=== PATIENT | female | born 1935 | race Caucasian/White ===

== ENCOUNTER 2017-10-25 10:00 | Outpatient (CLI) | payer MEDICARE | END 2017-10-25 10:01 | disposition home or self-care (01) | LOC: BICMAMMO 10:00 | PROVIDERS: ATTEND Internal Medicine | DX: Z12.31 Encounter for screening mammogram for malignant neoplasm of breast (principal); Z80.3 Family history of malignant neoplasm of breast; Z85.3 Personal history of malignant neoplasm of breast | CPT/HCPCS: 77063; 77067 ==

== ENCOUNTER 2017-11-03 12:37 | Observation (INO) | payer MEDICARE ==
[2017-11-03] MEDS ORDERED: Meclizine HCl 25 MG TAB ONE (13:13)
[2017-11-03] MEDS ORDERED: Promethazine HCl 25 MG/ML VIAL ONE (13:13)
[2017-11-03 13:23] LABS: #Lymphocytes 1.5 thou/uL (1.20-3.40); #Monocytes 0.3 thou/uL (0.11-0.59); #Neutrophils 7.9 thou/uL (1.40-6.50); %Basophils 0.2 % (0.0-1.0); %Eosinophils 0.2 % (0.0-10.0); %Lymphocytes 15.5 % (21.0-51.0); %Neutrophils 81.1 % (42.0-75.0); Hemoglobin 14.2 g/dL (12.0-16.0); Mean Corpuscular HGB CONC 33.3 g/dL (32.0-36.0); Mean Corpuscular Hemoglobin 30.3 pg (27.0-31.0); Mean Corpuscular Volume 90.9 fl (81.0-99.0); Mean Platelet Volume 6.9 fL (7.4-10.4); Platelet Count 220 thou/uL (130-400); RBC Distribution Width 11.9 % (11.5-14.5); White Blood Cell (WBC) Count 9.8 thou/uL (4.8-10.8)
[2017-11-03 13:41] LABS: ALT (SGPT) 13 U/L (8-55); AST (SGOT) 22 U/L (5-34); Albumin 4.5 g/dL (3.4-4.8); Alkaline Phosphatase 64 U/L (40-150); Anion Gap 17 mmol/L (10-20); BUN (Urea Nitrogen) 12 mg/dL (9.8-20.1); Bilirubin, Total 0.5 mg/dL (0.2-1.2); CK (CPK) 48 U/L (29-168); CKMB 1.1 ng/mL (0-6.6); Calc. Creatinine Clearance 0 mL/min (70-130); Calcium 9.4 mg/dL (7.8-10.44); Carbon Dioxide 23 mmol/L (23-31); Chloride 99 mmol/L (98-107); Estimated GFR-MDRD Greater than 90; Globulin 3.1 g/dL (2.4-3.5); Glucose 148 mg/dL (83-110); Lipase 19 U/L (8-78); Potassium 3.9 mmol/L (3.5-5.1); Protein, Total 7.6 g/dL (6.0-8.3); Sodium 135 mmol/L (136-145); Troponin I Less than 0.010 ng/mL (< 0.028)
--- NOTE | 2017-11-03 14:20 | CT ---
CT BRAIN NONCONTRAST: HISTORY: 82-year-old female with syncope and dizziness. FINDINGS: There is no midline shift or any other mass effect. There is no evidence of acute intracranial hemor rhage, large cortical infarct, obstructive hydrocephalus, or extraaxial fluid collection. The calvar ium is intact. IMPRESSION: No acute intracranial findings. aliya [] POS: [facility]
--- NOTE | 2017-11-03 14:22 | RAD ---
RADIOGRAPH CHEST 1 VIEW: Date: 11/03/17 Time: 1349 HOURS HISTORY: 82-year-old female status post syncope and hypertension. COMPARISON: 10/08/06. FINDINGS: The current study is supine, which would be insensitive for pneumothorax detection. The previously de monstrated elevation of left hemidiaphragm is more pronounced now, due to more hypoinflation of the l ungs. The visualized lung granados are clear, but the posterior lung bases, especially the left lower l obe, are obscured. Progression of atherosclerosis, ectasia, and tortuosity of the thoracic aorta. Muc h of the cardiac shadows is obscured by the elevated left hemidiaphragm. No pulmonary edema. IMPRESSION: 1. Chronically elevated left hemidiaphragm. 2. Atherosclerosis, ectasia, and tortuosity of the thoracic aorta. 3. No acute pulmonary findings. MARITA [] POS: VIK[facility]
[2017-11-03 14:54] LABS: Bilirubin Small (Negative); Blood, Urine Negative (Negative); Clarity CLEAR (Clear); Glucose, Urine (Dipstick) Negative (Negative); Leukocyte Negative (Negative); Nitrite Negative (Negative); Protein, Urine (Dipstick) Negative (Neg-Trace); Urobilinogen 0.2 mg/dL (0.2-1.0); pH, Urine 7.5 (5.0-9.0)
[2017-11-03] MEDS ORDERED: Diabetic Tussin 200 MG/10 ML UDCUP PO PRN (15:44)
[2017-11-03] MEDS ORDERED: Ondansetron ODT 4 MG TAB PO PRN (15:44)
[2017-11-03] MEDS ORDERED: Mag-Al 1200 mg/1200 mg/30 ML UDCUP PO PRN (15:44)
[2017-11-03] MEDS ORDERED: Sodium Chloride 0.65% Nasal 44 ML BOT EA NARE PRN (15:44)
[2017-11-03] MEDS ORDERED: Ondansetron HCl/PF 4 MG/2 ML Vial IVP PRN (15:44)
[2017-11-03] MEDS ORDERED: Zolpidem Tartrate 5 MG TAB PO PRN (15:44)
[2017-11-03] MEDS ORDERED: Loperamide HCl 2 MG CAP PO PRN (15:44)
[2017-11-03] MEDS ORDERED: hydrALAZINE 20 MG/ML VIAL SLOW IVP PRN (15:44)
[2017-11-03] MEDS ORDERED: Eucerin (Mineral Oil/Petrolatum,White) 30 gm Jar TOP PRN (15:44)
[2017-11-03] MEDS ORDERED: Chloraseptic Spray 180 ml Bottle PO PRN (15:44)
[2017-11-03] MEDS ORDERED: Acetaminophen 325 MG TAB PO PRN (15:44)
[2017-11-03] MEDS ORDERED: Loratadine 10 MG TAB PO PRN (15:44)
[2017-11-03] MEDS ORDERED: Senokot 8.6 MG TAB PO PRN (15:44)
[2017-11-03] MEDS ORDERED: Artificial Tears 18 DROP/0.9 ML EA EYE PRN (15:44)
[2017-11-03] MEDS ORDERED: Etodolac 200 MG CAP PO PRN (15:44)
[2017-11-03] MEDS ORDERED: Nitroglycerin 0.4 MG TAB (25 Tab Bottle) SL PRN (15:44)
[2017-11-03] MEDS ORDERED: Milk Of Magnesia 30 ML UDCUP PO PRN (15:44)
[2017-11-03] MEDS ORDERED: HYDROcodone/Acetaminophen 5/325 mg Tablet PO PRN (15:44)
--- NOTE | 2017-11-03 16:03 | HP ---
PRIMARY CARE PHYSICIAN: Jennifer Ryder M.D. REASON FOR ADMISSION: Vertigo and syncope. HISTORY OF PRESENT ILLNESS: An 82-year-old female, who has history of hypertension, who was experien cing sudden onset of dizziness, inability to maintain balance, unsteadiness along with nausea and vom iting. She denies any associated diplopia. She denies any focal motor or sensory symptoms. The pat iesherice had a couple of times vomiting and she also fainted for few seconds. The patient was not able to walk because of unsteadiness. The patient's blood pressure was very high at home. The patient's family member gave her 2 different kinds of blood pressure medicines, still blood pressure was running high and that is why family member concerned about and decided to bring he r to the emergency room. In the emergency room when the patient was trying to stand or walk, she was not able to maintain her balance and she was feeling dizziness. The patient also had episode of this near syncopal episode in the emergency room as well. The patient was hypertensive in the emergency room. CT brain was negat richy. Routine blood test was unremarkable. The patient denies any associated chest pain, palpitation , or headache. She denies any UTI symptoms. She denies any constipation, but she had diarrhea last night. Currently, she denies any diarrhea. She denies any abdominal pain. She denies any fever or flu-like illness. Her p.o. intake is normal. She denies any diplopia. She denies any facial asymme try or slurred speech. She never had this type of problem before. ALLERGIES: CODEINE SULFATE. CURRENT HOME MEDICATIONS: Aspirin 325 mg p.o. daily, Coreg 6.25 mg p.o. b.i.d., Coenzyme Q10 of 200 mg p.o. daily, etodolac 400 mg twice daily, lisinopril 5 mg at bedtime, lorazepam 1 mg p.o. at bedtim e, omeprazole 20 mg p.o. daily, and Livalo 4 mg p.o. daily. REVIEW OF SYSTEMS: The following complete review of systems was negative, unless otherwise mentioned in the HPI or below: Constitutional: Weight loss or gain, ability to conduct usual activities. Skin: Rash, itching. Eyes: Double vision, pain. ENT/Mouth: Nose bleeding, neck stiffness, pain, tenderness. Cardiovascular: Palpitations, dyspnea on exertion, orthopnea. Respiratory: Shortness of breath, wheezing, cough, hemoptysis, fever or night sweats. Gastrointestinal: Poor appetite, abdominal pain, heartburn, nausea, vomiting, constipation, or diarr hea. Genitourinary: Urgency, frequency, dysuria, nocturia. Musculoskeletal: Pain, swelling. Neurologic/Psychiatric: Anxiety, depression. Allergy/Immunologic: Skin rash, bleeding tendency. Please see my HPI for pertinent positive and negative. All other review of systems reviewed and nega tive except as mentioned in the HPI. PAST MEDICAL HISTORY: History of breast cancer, history of recurrent UTI, hypertension, LBBB, dyslip idemia, and gastroesophageal reflux disease. PAST SURGICAL HISTORY: Back surgery with a screw, hysterectomy, mastectomy of the right breast. PAST PSYCHIATRIC HISTORY: Reviewed and negative. SOCIAL HISTORY: The patient is and lives at home with family. No history of tobacco, alcoho l or illicit drug abuse. FAMILY HISTORY: No strong family history of premature coronary artery disease, stroke or cancer. EMERGENCY ROOM COURSE: The patient is given aspirin 324 mg, meclizine 25 mg, Phenergan 25 mg, and IV fluid. PHYSICAL EXAMINATION: VITAL SIGNS: On arrival, blood pressure 152/72, pulse 76, respiratory rate 16, temperature 97.2, sat uration 93% on room air, weight 50.8 kilograms. GENERAL: The patient is currently alert, awake, no obvious acute distress. HEENT: Head: Normocephalic, atraumatic. Eyes: Pupils round, reactive to light. Extraocular muscl es are intact. Nystagmus, horizontal present. ENT: Oropharynx within normal limits. Moist mucous membranes. No oral lesion. No pharyngeal erythema, no exudate. NECK: Supple, no JVD, no thyromegaly, no carotid bruit, no meningeal signs of irritation. LUNGS: Clear to auscultation without any rhonchi or rales. CARDIAC: S1, S2 regular. No murmur, no gallop, no rub. ABDOMEN: Soft, bowel sounds present, nontender, nondistended. No organomegaly, no mass, no suprapub ic tenderness. BACK: Unremarkable, no CVA tenderness. EXTREMITIES: Upper extremity: Passive movements of all joints are normal. Lower extremity: No lupe ma. Good peripheral pulsation. SKIN: No skin rash. HEMATOLOGIC: No lymphadenopathy. PSYCHIATRIC: Normal affect. NEUROLOGIC: The patient is alert and oriented x3. Cranial nerves II-XII intact. Motor is 5/5 in al l four limbs. Sensation bilaterally symmetrical. Reflexes bilaterally symmetrical. No cerebellar s ign noted. Horizontal nystagmus noted. Plantar bilateral flexor. Gait is unable to assess. IMAGING: EKG showing incomplete left bundle branch block pattern, left ventricular hypertrophy. CT brain based on my review, no acute intracranial process. Chest x-ray based on my review, chronically elevated left hemidiaphragm. SIGNIFICANT LABS: CBC: WBC 9.8, hemoglobin 14.2, platelet 220. BMP: Sodium 135, potassium 3.9, chloride 99, carbon dioxide 23, anion gap 17, BUN 12, creatinine 0.6 1, glucose 148, calcium 9.4. LFT: AST 22, ALT 13, alkaline phosphatase 64, albumin 4.5, lipase 19. CK 48, CK-MB 1.1, troponin I less than 0.010, BNP 131.8. ASSESSMENT AND PLAN: 1. Dizziness/vertigo and syncope. The patient has horizontal nystagmus. The patient has positional vertigo. I am suspecting benign positional vertigo, vestibular labyrinthitis less likely given no r espiratory or viral symptoms. I am not suspecting cerebellar stroke, but cannot be entirely excluded . CT brain is negative. She does not have any cerebellar signs. She will need further evaluation w ith MRI brain, echocardiography and carotid Doppler while in hospital. We will treat her with Antive rt 25 mg p.o. t.i.d. and will rule out cardiac etiology with serial cardiac enzymes. We will monitor on telemetry floor and subsequently if patient is doing well, then we will consider discharging her home tomorrow. We will also consult Physical Therapy evaluation tomorrow. 2. Hypertension. We will rule out orthostatic hypotension and will continue Coreg 6.25 mg p.o. b.i. d., as well as lisinopril 5 mg p.o. at bedtime. 3. Gastroesophageal reflux disease. We will continue Pepcid 20 mg p.o. b.i.d. 4. Dyslipidemia. We will check lipid profile tomorrow and continue Livalo 4 mg p.o. at bedtime. 5. History of breast cancer, treated with mastectomy. 6. Chronic left bundle branch block pattern. 7. Left ventricular hypertrophy with heart disease. The patient has elevated BNP and that is why we will do echocardiography as well. 8. Deep venous thrombosis prophylaxis not needed because we are expecting discharge in 24 hours. 9. Gastrointestinal prophylaxis, Pepcid 20 mg p.o. b.i.d. 10. Code status: The patient is FULL CODE. The patient's is surrogate decision maker. Disposition plan was based on clinical course. We are expecting patient's stay in hospital 24-48 sage rs. Plan of care discussed with the family member at bedside in the emergency room.
[2017-11-03 17:00] LABS: Troponin I Less than 0.010 ng/mL (< 0.028)
[2017-11-03 17:29] VITALS: BMI 20.3
[2017-11-03] MEDS: Carvedilol 6.25 MG TAB PO SCH (18:17)
--- NOTE | 2017-11-03 19:17 | ULT ---
BILATERAL CAROTID DUPLEX ULTRASOUND WITH SPECTRAL ANALYSIS AND COLOR FLOW EVALUATION. 11/03/17 HISTORY: Syncope and dizziness. FINDINGS: [place] scale, color flow, doppler evaluation, and spectral analysis of the bilateral carotid arteries i s performed with 2D imaging. There is a calcified atherosclerotic plaque seen in the distal left comm on carotid artery and involving the proximal left internal carotid artery. There is less than 50% maximal stenosis in the bilateral internal carotid arteries according to the p eak systolic velocities and the ICA/CCA ratios. The peak systolic velocity in the right ICA is 53.3 cm/s with an ICA/CCA ratio of 0.47. The peak systolic velocity in the left ICA is 45.5 cm/s with an ICA/CCA ratio of 1.19. Antegrade flow is demonstrated in the vertebral arteries bilaterally. IMPRESSION: No hemodynamically significant stenosis in the bilateral internal carotid arteries. POS: [facility]
[2017-11-03 19:50] LABS: Troponin I Less than 0.010 ng/mL (< 0.028)
[2017-11-03] MEDS: Famotidine 20 MG TAB PO SCH (20:15)
[2017-11-03] MEDS ORDERED: Lorazepam 1 MG TAB PO SCH (21:00)
[2017-11-03] MEDS ORDERED: Lisinopril 5 MG TAB PO SCH (21:00)
[2017-11-03] MEDS ORDERED: Atorvastatin Calcium 20 MG TAB PO SCH (21:00)
[2017-11-03] MEDS: Meclizine HCl 25 MG TAB PO SCH (21:13)
[2017-11-04 04:51] LABS: #Eosinphils 0.1 thou/uL (0.0-0.7); #Lymphocytes 2.2 thou/uL (1.20-3.40); #Monocytes 0.7 thou/uL (0.11-0.59); #Neutrophils 4.3 thou/uL (1.40-6.50); %Basophils 0.1 % (0.0-1.0); %Eosinophils 1.1 % (0.0-10.0); %Lymphocytes 29.9 % (21.0-51.0); %Monocytes 9.8 % (0.0-10.0); %Neutrophils 59.2 % (42.0-75.0); Hemoglobin 13.3 g/dL (12.0-16.0); Mean Corpuscular HGB CONC 33.6 g/dL (32.0-36.0); Mean Corpuscular Hemoglobin 30.5 pg (27.0-31.0); Mean Corpuscular Volume 90.7 fl (81.0-99.0); Mean Platelet Volume 6.9 fL (7.4-10.4); Platelet Count 220 thou/uL (130-400); Red Blood Cell (RBC) Count 4.36 mill/uL (4.20-5.40); White Blood Cell (WBC) Count 7.2 thou/uL (4.8-10.8)
[2017-11-04 05:04] LABS: Anion Gap 10 mmol/L (10-20); BUN (Urea Nitrogen) 11 mg/dL (9.8-20.1); Calc. Creatinine Clearance 61 mL/min (70-130); Calcium 9.7 mg/dL (7.8-10.44); Carbon Dioxide 28 mmol/L (23-31); Cardiac Risk 3.4 (Less than 4.5); Chloride 105 mmol/L (98-107); Cholesterol 178 mg/dl (< 200 Desired); Estimated GFR-MDRD Greater than 90; Glucose 99 mg/dL (83-110); HDL Cholesterol 52 mg/dL (>60 Neg Risk); LDL Cholesterol, Calculated 93 mg/dL; Potassium 3.3 mmol/L (3.5-5.1); Sodium 140 mmol/L (136-145); Triglycerides 164 mg/dL (Less than 150)
[2017-11-04] MEDS: Meclizine HCl 25 MG TAB PO SCH (05:27)
[2017-11-04] MEDS ORDERED: Potassium Chloride 20 MEQ TAB PO SCH (06:45)
[2017-11-04] MEDS: Famotidine 20 MG TAB PO SCH (08:41)
[2017-11-04] MEDS: Carvedilol 6.25 MG TAB PO SCH (08:41)
[2017-11-04] MEDS ORDERED: Ubidecarenone 50 MG CAP PO SCH (09:00)
[2017-11-04] MEDS ORDERED: Aspirin 325 MG TAB PO SCH (09:00)
--- NOTE | 2017-11-04 09:50 | PDOC.PN ---
- Subjective Encounter Start Date: 11/04/17 Encounter Start Time: 08:40 -: old records requested/rev Patient seen and examined. No new complaints. No overnight events - Objective Resuscitation Status: Resuscitation Status FULL:Full Resuscitation MAR Reviewed: Yes Vital Signs & Weight: Vital Signs (12 hours) Temp Pulse Resp BP BP BP BP 11/04/17 08:55 83 164/78 H 11/04/17 08:54 80 154/74 H 150/70 H 11/04/17 07:59 98.0 F 78 16 11/04/17 07:41 98.0 F 78 16 173/78 H 11/04/17 04:21 97.8 F 86 22 H 141/73 H Pulse Ox 11/04/17 08:55 11/04/17 08:54 11/04/17 07:59 11/04/17 07:41 93 L 11/04/17 04:21 93 L Weight Weight 111 lb 3.2 oz I&O: 11/03/17 11/04/17 11/05/17 06:59 06:59 06:59 Intake Total 600 Output Total 1000 800 Balance -400 -800 Result Diagrams: 11/04/17 04:24 11/04/17 04:24 Radiology Reviewed by me: Yes (carotid) EKG Reviewed by me: Yes (nsr) Phys Exam - Physical Examination Constitutional: NAD HEENT: PERRLA, moist MMs, sclera anicteric Neck: no JVD, supple Respiratory: no wheezing, no rales, no rhonchi Cardiovascular: RRR, no significant murmur, no rub Gastrointestinal: soft, non-tender, no distention, positive bowel sounds Musculoskeletal: no edema, pulses present Neurological: non-focal, normal sensation, moves all 4 limbs Lymphatic: no nodes Psychiatric: normal affect, A&O x 3 Skin: no rash, normal turgor Dx/Plan (1) Vertigo Code(s): R42 - DIZZINESS AND GIDDINESS Status: Acute Comment: likely due to BPPV (2) Elevated brain natriuretic peptide (BNP) level Code(s): R79.89 - OTHER SPECIFIED ABNORMAL FINDINGS OF BLOOD CHEMISTRY Status : Acute (3) Hypokalemia Code(s): E87.6 - HYPOKALEMIA Status: Acute (4) Anxiety and depression Code(s): F41.9 - ANXIETY DISORDER, UNSPECIFIED; F32.9 - MAJOR DEPRESSIVE DISORDER, SINGLE EPISODE, UNSPECIFIED Status: Chronic (5) Dyslipidemia Code(s): E78.5 - HYPERLIPIDEMIA, UNSPECIFIED Status: Chronic (6) GERD (gastroesophageal reflux disease) Code(s): K21.9 - GASTRO-ESOPHAGEAL REFLUX DISEASE WITHOUT ESOPHAGITIS Status: Chronic (7) H/O malignant neoplasm of breast Code(s): Z85.3 - PERSONAL HISTORY OF MALIGNANT NEOPLASM OF BREAST Status: Chronic (8) Hypertension Code(s): I10 - ESSENTIAL (PRIMARY) HYPERTENSION Status: Chronic (9) LBBB (left bundle branch block) Code(s): I44.7 - LEFT BUNDLE-BRANCH BLOCK, UNSPECIFIED Status: Chronic (10) LVH (left ventricular hypertrophy) due to hypertensive disease Code(s): I11.9 - HYPERTENSIVE HEART DISEASE WITHOUT HEART FAILURE Status: Chronic - Plan cont current plan of care, plan discussed w/ family, PT/OT * after MRI, echo will consider discharge * medication reviewed as below * symptomatic treatment. Review of Systems - Review of Systems Eyes: negative: Pain, Vision Change, Conjunctivae Inflammation, Eyelid Inflammation, Redness, Other ENT: negative: Ear Pain, Ear Discharge, Nose Pain, Nose Discharge, Nose Congestion, Mouth Pain, Mouth Swelling, Throat Pain, Throat Swelling, Other Respiratory: negative: Cough, Dry, Shortness of Breath, Hemoptysis, SOB with Excertion, Pleuritic Pain, Sputum, Wheezing Cardiovascular: negative: chest pain, palpitations, orthopnea, paroxysmal nocturnal dyspnea, edema, light headedness, other Gastrointestinal: negative: Nausea, Vomiting, Abdominal Pain, Diarrhea, Constipation, Melena, Hematochezia, Other Genitourinary: negative: Dysuria, Frequency, Incontinence, Hematuria, Retention , Other Musculoskeletal: negative: Neck Pain, Shoulder Pain, Arm Pain, Back Pain, Hand Pain, Leg Pain, Foot Pain, Other Skin: negative: Rash, Lesions, Farzad, Bruising, Other - Medications/Allergies Allergies/Adverse Reactions: Allergies Allergy/AdvReac Type Severity Reaction Status Date / Time codeine Allergy Verified 11/03/17 17:44 Medications: Current Medications Acetaminophen (Tylenol) 650 mg PO Q4H PRN PRN Reason: Headache/Fever or Pain Last Admin: 11/03/17 18:17 Dose: 650 mg Hydrocodone Bitart/Acetaminophen ([place] 5/325) 1 tab PO Q4H PRN PRN Reason: Moderate Pain (4-6) Al Hydroxide/Mg Hydroxide (Maalox) 30 ml PO Q6H PRN PRN Reason: Heartburn or Indigestion Artificial Tears (Tears Naturale) 0 drop EA EYE PRN PRN PRN Reason: Dry Eyes Aspirin (Aspirin) 325 mg PO DAILY [facility] Last Admin: 11/04/17 08:41 Dose: 325 mg Atorvastatin Calcium (Lipitor) 20 mg PO [facility] Last Admin: 11/03/17 20:15 Dose: 20 mg Carvedilol (Coreg) 6.25 mg PO BID[facility] Last Admin: 11/04/17 08:41 Dose: 6.25 mg Coenzyme Q10 (Coenzyme Q10) 200 mg PO DAILY [facility] Last Admin: 11/04/17 08:42 Dose: 200 mg Etodolac (Lodine) 400 mg PO Q12H PRN PRN Reason: Pain Famotidine (Pepcid) 20 mg PO BID [facility] Last Admin: 11/04/17 08:41 Dose: 20 mg Guaifenesin (Robitussin Sf) 200 mg PO Q4H PRN PRN Reason: Cough Hydralazine HCl (Apresoline) 10 mg SLOW IVP Q4H PRN PRN Reason: Systolic BP > 180 Lisinopril (Zestril) 5 mg PO [facility] Last Admin: 11/03/17 20:15 Dose: 5 mg Loperamide HCl (Imodium) 2 mg PO PRN PRN PRN Reason: Diarrhea/Loose Stools Loratadine (Claritin) 10 mg PO DAILYPRN PRN PRN Reason: Sinus Symptoms Lorazepam (Ativan) 1 mg PO [facility] Last Admin: 11/03/17 20:15 Dose: 1 mg Magnesium Hydroxide (Milk Of Magnesium) 30 ml PO DAILYPRN PRN PRN Reason: Constipation Meclizine HCl (Antivert) 25 mg PO Q8HR [facility] Last Admin: 11/04/17 05:27 Dose: 25 mg Mineral Oil/White Petrolatum (Eucerin Cream) 0 gm TOP BIDPRN PRN PRN Reason: Dry Skin Nitroglycerin (Nitrostat) 0.4 mg SL Q5MIN PRN PRN Reason: Chest Pain Ondansetron HCl (Zofran Odt) 4 mg PO Q6H PRN PRN Reason: Nausea/Vomiting Ondansetron HCl (Zofran) 4 mg IVP Q6H PRN PRN Reason: Nausea/Vomiting Phenol (Chloraseptic [place] 180 Ml Bot) 0 ml PO PRN PRN PRN Reason: Sore Throat Senna (Senokot) 2 tab PO HSPRN PRN PRN Reason: Constipation Sodium Chloride ([place] Nasal [place] 0.65%) 0 ml EA NARE QIDPRN PRN PRN Reason: Nasal Congestion Zolpidem Tartrate (Ambien) 5 mg PO HSPRN PRN PRN Reason: Insomnia
--- NOTE | 2017-11-04 11:11 | DIS ---
DATE OF ADMISSION: 11/03/2017 DATE OF DISCHARGE: 11/04/2017 PRIMARY CARE PHYSICIAN: Dr. Jennifer Ryder. DISCHARGE DISPOSITION: Home. PRIMARY DISCHARGE DIAGNOSES: 1. Vertigo. 2. Syncope. SECONDARY DISCHARGE DIAGNOSES: Hypertension with hypertensive heart disease, left ventricular hypert rophy, chronic left bundle branch block pattern, anxiety and depression, dyslipidemia, gastroesophage al reflux disease, history of breast cancer. PRIMARY PROCEDURE AND OPERATION: None. RADIOLOGICAL INVESTIGATION: CT brain normal. Chest x-ray normal. Carotid Doppler normal. Echocard iography will be done before discharge. MRI, we will try to do if possible (patient reports screws i n her back). SIGNIFICANT LABORATORY DATA: Hemoglobin 13.3. CBC normal. Potassium 3.3 and after that replaced. Other electrolytes normal. Cardiac enzymes negative. BNP 131, LDL 93, homocysteine 3.25. Urinalysi s normal. DISCHARGE MEDICATIONS: New medication, Antivert 25 mg t.i.d. p.r.n., aspirin 325 mg p.o. daily, Core g 6.25 mg p.o. b.i.d., vitamin D3 1000 unit p.o. daily, etodolac 400 mg p.o. b.i.d., lisinopril 5 mg p.o. at bedtime, lorazepam 0.5 mg p.o. at bedtime, omeprazole 20 mg p.o. daily, Livalo 4 mg p.o. cami y, coenzyme Q10 200 mg p.o. daily, vitamin B complex 1 capsule p.o. daily. CONTRAINDICATIONS: None. CODE STATUS: FULL CODE. INPATIENT CONSULTANTS: None. ALLERGIES: CODEINE. DISCHARGE PLAN: Post hospital, the patient will follow up with primary care physician as instructed. HOSPITAL COURSE: An 82-year-old female who was feeling acute onset of vertigo. She was feeling a sp inning sensation and she had episode of vomiting and subsequently she passed out for a few seconds. The patient was brought to emergency room, she was hypertensive. She was not able to maintain her ba annita. She had horizontal nystagmus. She did not have any cerebellar sign on physical examination. Her CT brain was normal. Her chest x-ray was normal. Routine blood test was unremarkable. We susp ected benign positional vertigo. For benefit of doubt, we are trying to do MRI brain if possible and we also did an echocardiography, official report will be pending by the time of dictation. A caroti d Doppler is normal. We treated her with Antivert and patient next day completely unremarkable. Her dizziness and vertigo completely resolved and patient is ready to go home. Her nausea and vomiting also subsided. The patient is seen and examined at bedside today. Please see my progress note from today. After ab ove-mentioned investigation done, this patient is medically stable for discharge.
[2017-11-04 11:52] VITALS: BP 154/74; TEMP 97.9
--- NOTE | 2017-11-04 13:13 | MRI ---
BRAIN MRI NONCONTRAST: Date: 11/04/17 INDICATION: Syncope with dizziness. Reference made to head CT from previous day. FINDINGS: There is no acute territorial infarction, intracranial mass effect, midline shift, or ventriculomegal y. [place] intraocular lens is absent. No obvious abnormality at the imaged skull base flow-voids. The re is mid chronic microvascular ischemic disease involving the cerebral white matter. IMPRESSION: No acute intracranial abnormalities. POS: [facility]
--- NOTE | 2017-12-14 14:01 | EKG ---
Test Reason : Blood Pressure : / mmHG Vent. Rate : 074 BPM Atrial Rate : 074 BPM P-R Int : 178 ms QRS Dur : 156 ms QT Int : 454 ms P-R-T Axes : 044 -05 108 degrees QTc Int : 503 ms Normal sinus rhythm Left ventricular hypertrophy with QRS widening and repolarization abnormality Left bundle branch block , old Abnormal ECG Confirmed by FAUZIA RAMÍREZ, GEO ([id number]), photography editor SOFIE MORAES ([id number]) on 12/14/2017 2:01:24 PM Referred By: Confirmed By:GEO CAGE MD
== END 2017-11-04 13:49 | disposition home or self-care (01) ==
LOC: ERS 12:37 → 2SW 14:29
PROVIDERS: ADMIT Internal Medicine; ATTEND Internal Medicine
DX: H81.10 Benign paroxysmal vertigo, unspecified ear (principal); R55 Syncope and collapse; I11.9 Hypertensive heart disease without heart failure; I44.7 Left bundle-branch block, unspecified; E78.5 Hyperlipidemia, unspecified; K21.9 Gastro-esophageal reflux disease without esophagitis; F41.9 Anxiety disorder, unspecified; F32.9 Major depressive disorder, single episode, unspecified; R79.89 Other specified abnormal findings of blood chemistry; E87.6 Hypokalemia; Z85.3 Personal history of malignant neoplasm of breast; Z79.82 Long term (current) use of aspirin; Z79.899 Other long term (current) drug therapy; Z88.5 Allergy status to narcotic agent
CPT/HCPCS: 70450; 70551; 71045; 80048; 80053; 80061; 81003; 82550; 82553; 83090; 83690; 83880; 84484 ×2; 85025 ×2; 93005; 93306; 93880; 94760; 96365; 97139; 99285; G0378; 36415; J2550

== ENCOUNTER 2018-10-28 09:49 | Outpatient (CLI) | payer MEDICARE ==
--- NOTE | 2018-10-28 12:47 | BD ---
BONE DENSITOMETRY: Date: 10/28/18 HISTORY: 83-year-old female for postmenopausal osteoporosis screening. FINDINGS: Lumbar Spine: BMD (g/cm2) L1 1.115 T-Score: 1.1 L2 1.14 T-Score: 1.1 L3 1.216 T-Score: 1.2 L4 0.889 T-Score: -1.6 Total 1.091 T-Score: 0.4 Total lumbar spine density 09/07/06: 0.971 Total lumbar spine density 09/06/04: 0.950 Total lumbar spine density 09/15/02: 0.944 Left Femoral Neck: 0.655 T-Score: -1.7 Total Femur: 0.735 T-Score: -1.7 Total femur density 09/07/06: Not available Total femur density 09/06/04: 0.865 Total femur density 09/15/02: 0.858 IMPRESSION: 1. Bone mineral density of the lumbar spine within normal range. 2. Bone mineral density of the femoral neck indicates osteopenia. 10 YEAR FRACTURE RISK: Major osteoporotic fracture: 13% Hip fracture: 3.6% POS: [facility]
--- NOTE | 2018-10-30 18:27 | MMO ---
Bilateral MAMMO Bilat Screen [facility]. CLINICAL HISTORY: Patient is 83 years old and is seen for screening. The patient has the following family history of breast cancer: sister, at age 65. The patient has a history of right Mastectomy in 1991 and right Mastectomy - 1. VIEWS: The views performed were: left craniocaudal with tomosynthesis and left mediolateral oblique with tomosynthesis. FILMS COMPARED: The present examination has been compared to prior imaging studies performed at [facility] on 08/17/1999, 08/21/2000, 08/22/2001, 08/25/2002, 08/26/2003, 08/26/2004, 09/07/2005, 09/07/2006, 09/24/2008, 10/11/2009, 10/14/2010, 10/19/2011, 10/11/2012, 10/13/2013, 10/20/2014, 10/22/2015, 10/24/2016 and 10/25/2017. MAMMOGRAM FINDINGS: The breast is heterogeneously dense, which could obscure a lesion on mammography. There are stable benign appearing calcifications seen in the left breast. There are no suspicious masses, calcifications or areas of architectural distortion. There are no suspicious masses, suspicious calcifications, or new areas of architectural distortion. IMPRESSION: THERE IS NO MAMMOGRAPHIC EVIDENCE OF MALIGNANCY. A ROUTINE FOLLOW-UP MAMMOGRAM IN 1 YEAR IS RECOMMENDED. THE RESULTS OF THIS EXAM WERE SENT TO THE PATIENT. ACR BI-RADS Category 2 - Benign finding MAMMOGRAPHY NOTE: 1. A negative mammogram report should not delay a biopsy if a dominant of clinically suspicious mass is present. 2. Approximately 10% to 15% of breast cancers are not detected by mammography. 3. Adenosis and dense breasts may obscure an underlying neoplasm.
== END 2018-10-28 09:50 | disposition home or self-care (01) ==
LOC: BICMAMMO 09:49
PROVIDERS: ATTEND Internal Medicine
DX: Z12.31 Encounter for screening mammogram for malignant neoplasm of breast (principal); M85.89 Other specified disorders of bone density and structure, multiple sites; Z80.3 Family history of malignant neoplasm of breast; Z90.11 Acquired absence of right breast and nipple; Z85.3 Personal history of malignant neoplasm of breast
CPT/HCPCS: 77063; 77067; 77080

== ENCOUNTER 2019-03-20 12:34 | Outpatient (CLI) | payer MEDICARE ==
--- NOTE | 2019-03-20 17:48 | MRI ---
THORACIC SPINE MRI NONCONTRAST: INDICATION: Thoracic pain. FINDINGS: There is mild accentuation of thoracic kyphosis. No acute compression deformity or marrow edema. No acute disk space edema or significant paraspinous soft tissue edema. Evaluation of the thoracic spi nal cord reveals no expansile process or abnormal intramedullary edema. There is mild multilevel osteophytosis and slight disk space narrowing, although no high-grade extrin sic mass effect upon the central canal, and no evidence of cord deformity. No significant neural for aminal compromise is demonstrated. Spinal alignment is maintained. Partially imaged spleen demonstrates focal prominence at its medial aspect which is not reliably eval uated. Within this region, there are foci of signal alteration. IMPRESSION: 1. No significant thoracic spine abnormality for patient's age. Specifically, no compression deform ity or significant subluxation. 2. No significant cord signal abnormality. 3. Incidental note of indeterminate signal alteration of the spleen, incompletely evaluated on the b asis of this exam. Recommend followup with CT abdomen utilizing IV contrast administration for furth er assessment. POS: [facility]
--- NOTE | 2019-03-20 18:22 | MRI ---
LUMBAR SPINE MRI NONCONTRAST: 03/20/19 INDICATION: Low back pain. FINDINGS: There is dextroscoliosis of the lumbar spine. No evidence of acute marrow edema. Scoliotic curvature does limit assessment of alignment, with suggestion of mild multilevel listhesis at the upper to mid lumbar spine, although a component may relate to prominent overhanging osteophytes, posteriorly. Incidental note of T2 hyperintensities of each kidney. There is also interposed signal alteration pos teriorly at the right kidney which could relate to a component of renal cortical scar, although this is not reliably evaluated on the basis of this exam. Conus medullaris terminates at the L1-2 level. There is a transitional lumbosacral segment which will be deemed L5 on the basis of this exam placing iliolumbar ligaments at the L5 level. L5-S1: There is an osteophyte ridge with mild narrowing of the central canal and mild left neural fo raminal narrowing. No significant right neural foraminal stenosis. L4-5: Degenerative disc space narrowing is present along with disc osteophyte complex producing mild narrowing of the central canal. There is prominent lateralized osteophyte on the right adjacent to fa cet hypertrophy which results in moderate right neural foraminal stenosis. No high grade left foramin al compromise. L3-4: Mild to moderate central canal stenosis due to disc osteophyte and facet hypertrophy. Mild narr owing of each neural foramen. L2-3: Mild to moderate central canal stenosis with mild bilateral neural foraminal narrowing due to d isc osteophyte and facet hypertrophy. L1-2: Mild central canal stenosis with a broad based disc osteophyte. There is mild bilateral neural foraminal stenosis. T12-L1: Disc osteophyte complex with mild narrowing of the central canal and mild bilateral neural fo raminal stenosis. Multilevel bilateral degenerative facet hypertrophy is present, greatest inferiorly. IMPRESSION: 1. Multilevel degenerative change of the lumbar spine as outlined above. 2. Incidental note of signal alteration of each kidney. Follow-up with renal ultrasound may prov e useful. POS: [facility]
== END 2019-03-20 12:35 | disposition home or self-care (01) ==
LOC: TBSIIMAG 12:34
PROVIDERS: ATTEND Neurological Surgery
DX: M54.5 Low back pain (principal); M54.6 Pain in thoracic spine; M47.816 Spondylosis without myelopathy or radiculopathy, lumbar region
CPT/HCPCS: 72146; 72148

== ENCOUNTER 2020-01-05 12:40 | Outpatient (CLI) | payer MEDICARE ==
--- NOTE | 2020-01-05 16:08 | MMO ---
Bilateral MAMMO Bilat Screen [facility]. CLINICAL HISTORY: Patient is 84 years old and is seen for screening. The patient has the following family history of breast cancer: sister, at age 65; 2 cousin females and paternal aunt. The patient has a history of right Mastectomy in 1991 and right Mastectomy - 1. VIEWS: The views performed were: left craniocaudal with tomosynthesis and left mediolateral oblique with tomosynthesis. FILMS COMPARED: The present examination has been compared to prior imaging studies performed at [facility] on 10/22/2015, 10/24/2016, 10/25/2017 and 10/28/2018. This study has been interpreted with the assistance of computer-aided detection. MAMMOGRAM FINDINGS: The breast is heterogeneously dense, which could obscure a lesion on mammography. There are stable calcifications seen in the left breast. There are no suspicious masses, suspicious calcifications, or new areas of architectural distortion. IMPRESSION: THERE IS NO MAMMOGRAPHIC EVIDENCE OF MALIGNANCY. A ROUTINE FOLLOW-UP MAMMOGRAM IN 1 YEAR IS RECOMMENDED. THE RESULTS OF THIS EXAM WERE SENT TO THE PATIENT. ACR BI-RADS Category 2 - Benign finding MAMMOGRAPHY NOTE: 1. A negative mammogram report should not delay a biopsy if a dominant of clinically suspicious mass is present. 2. Approximately 10% to 15% of breast cancers are not detected by mammography. 3. Adenosis and dense breasts may obscure an underlying neoplasm. Reported by: ASHISH FLORES MD Electonically Signed: [id number]
== END 2020-01-05 12:41 | disposition home or self-care (01) ==
LOC: BICMAMMO 12:40
PROVIDERS: ATTEND Internal Medicine
DX: Z12.31 Encounter for screening mammogram for malignant neoplasm of breast (principal); Z80.3 Family history of malignant neoplasm of breast; Z98.890 Other specified postprocedural states
CPT/HCPCS: 77063; 77067

== ENCOUNTER 2020-07-27 12:37 | Outpatient (CLI) | payer MEDICARE ==
[2020-07-27 13:20] LABS: Estimated GFR-MDRD - POC Greater than 90
[2020-07-27] MEDS ORDERED: Iopamidol-370 76% 500 ML 1 ML ONE (13:23)
--- NOTE | 2020-07-27 13:46 | CT ---
CTA Angio Chest W Con History: Shortness of breath Comparison: Chest radiograph July 05, 2020 Findings: CT angiogram chest performed after the intravenous administration of contrast. 3-D renderin g provided. No proximal segmental pulmonary arterial filling defect. Pulmonary trunk along with the main pulmonar y arteries are dilated. Aortic contour is nonaneurysmal. No pericardial effusion. Celiac trunk is patent. Chronic left hemidiaphragm elevation. No pericardial effusion. No airspace consolidation, pneumothorax or effusion. Bronchiectasis and volume loss medial basal righ t lower lobe. Thoracic spine is intact. Sternum and manubrium are intact. No acute displaced rib fracture. Impression: 1. No pulmonary embolus. 2. Chronic elevation left hemidiaphragm. 3. No evidence for acute pneumonia.
== END 2020-07-27 12:38 | disposition home or self-care (01) ==
LOC: BICCT 12:37 → CT 12:38
PROVIDERS: ATTEND Internal Medicine Cardiovascular Disease
DX: R06.02 Shortness of breath (principal); J98.6 Disorders of diaphragm
CPT/HCPCS: 71275; 82565; Q9967

== ENCOUNTER 2021-01-06 09:34 | Outpatient (CLI) | payer MEDICARE | END 2021-01-06 09:35 | disposition home or self-care (01) | LOC: BICMAMMO 09:34 | PROVIDERS: ATTEND Internal Medicine | DX: Z12.31 Encounter for screening mammogram for malignant neoplasm of breast (principal); Z90.11 Acquired absence of right breast and nipple; Z80.3 Family history of malignant neoplasm of breast | CPT/HCPCS: 77063; 77067 ==

== ENCOUNTER 2021-05-27 14:14 | Outpatient (CLI) | payer MEDICARE ==
[2021-05-27 15:51] LABS: Hemoglobin 13.9 g/dL (12.0-15.5); Mean Corpuscular HGB CONC 31.8 g/dL (32.0-36.0); Mean Corpuscular Hemoglobin 29.6 pg (27.0-33.0); Mean Platelet Volume 10.6 fl (7.4-10.4); Platelet Count 221 10x3/uL (150-450); White Blood Cell (WBC) Count 7.8 10x3/uL (3.5-10.5)
[2021-05-27 16:24] LABS: Anion Gap 17 mmol/L (10-20); BUN (Urea Nitrogen) 17 mg/dL (9.8-20.1); Calc. Creatinine Clearance 0 mL/min (70-130); Calcium 9.8 mg/dL (7.8-10.44); Carbon Dioxide 24 mmol/L (23-31); Chloride 101 mmol/L (98-107); Glucose 94 mg/dL (83-110); Potassium 4.8 mmol/L (3.5-5.1); Sodium 137 mmol/L (136-145)
[2021-05-28 00:37] LABS: SARS-CoV-2 PCR by NAA Not Detected (NotDetected)
== END 2021-05-27 14:15 | disposition home or self-care (01) ==
LOC: LABBT 14:14
PROVIDERS: ATTEND Internal Medicine Cardiovascular Disease
DX: Z01.812 Encounter for preprocedural laboratory examination (principal); Z20.822 Contact with and (suspected) exposure to COVID-19
CPT/HCPCS: 80048; 85027; U0003; U0005

== ENCOUNTER 2021-06-24 13:40 | Outpatient (CLI) | payer MEDICARE ==
[2021-06-24 14:42] LABS: #Eosinphils 0.1 10x3/uL (0.0-0.5); #Monocytes 0.7 10x3/uL (0.0-1.1); #Neutrophils 5.1 10x3/uL (1.5-8.4); %Basophils 0.5 % (0.0-2.0); %Eosinophils 0.8 % (0.0-6.0); %Lymphocytes 29.6 % (18.0-47.0); %Monocytes 8.2 % (0.0-10.0); %Neutrophils 60.7 % (40.0-75.0); Hemoglobin 13.6 g/dL (12.0-15.5); Mean Corpuscular HGB CONC 31.2 g/dL (32.0-36.0); Mean Corpuscular Hemoglobin 29.1 pg (27.0-33.0); Mean Corpuscular Volume 93.2 fl (81.6-98.3); Mean Platelet Volume 9.4 fl (7.4-10.4); Platelet Count 233 10x3/uL (150-450); RBC Distribution Width 13.1 % (11.5-14.5); Red Blood Cell (RBC) Count 4.68 10x6/uL (3.90-5.03); White Blood Cell (WBC) Count 8.4 10x3/uL (3.5-10.5)
[2021-06-24 14:52] LABS: ALT (SGPT) 14 U/L (8-55); AST (SGOT) 21 U/L (5-34); Albumin 4.4 g/dL (3.4-4.8); Alkaline Phosphatase 61 U/L (40-110); Anion Gap 15 mmol/L (10-20); BUN (Urea Nitrogen) 16 mg/dL (9.8-20.1); Bilirubin, Total 0.4 mg/dL (0.2-1.2); Calc. Creatinine Clearance 0 mL/min (70-130); Calcium 9.5 mg/dL (7.8-10.44); Carbon Dioxide 26 mmol/L (23-31); Chloride 102 mmol/L (98-107); Globulin 3.1 g/dL (2.4-3.5); Glucose 77 mg/dL (83-110); Potassium 4.6 mmol/L (3.5-5.1); Protein, Total 7.5 g/dL (5.8-8.1); Sodium 138 mmol/L (136-145)
[2021-06-24 23:23] LABS: SARS-CoV-2 PCR by NAA Not Detected (NotDetected)
== END 2021-06-24 13:41 | disposition home or self-care (01) ==
LOC: LABBT 13:40
PROVIDERS: ATTEND Internal Medicine Cardiovascular Disease
DX: Z01.812 Encounter for preprocedural laboratory examination (principal); Z20.822 Contact with and (suspected) exposure to COVID-19
CPT/HCPCS: 80053; 85025; U0003; U0005

== ENCOUNTER 2021-06-28 08:35 | Day surgery (SDC) | payer MEDICARE ==
[2021-06-27 09:32] VITALS: BMI 16.7
[2021-06-28] MEDS ORDERED: Iopamidol 370 76% 100 ML VIAL ONE (09:17)
[2021-06-28] MEDS ORDERED: Lidocaine 1% (PF) 30 ML VIAL ONE (09:35)
[2021-06-28] MEDS ORDERED: Midazolam HCl 2 mg/2 ml Vial ONE (09:59)
[2021-06-28] MEDS ORDERED: Fentanyl 100 MCG/2 ML VIAL ONE (09:59)
[2021-06-28] MEDS ORDERED: Metoprolol Tartrate 5 MG/5 ML VIAL ONE (10:46)
[2021-06-28] MEDS ORDERED: Ondansetron PF 4 MG/2 ML Vial ONE (10:52)
[2021-06-29] MEDS ORDERED: Metoprolol Tartrate 5 MG/5 ML VIAL ONE (06:02)
== END 2021-06-28 16:15 | disposition home or self-care (01) ==
LOC: SDC 08:35
PROVIDERS: ATTEND Internal Medicine Cardiovascular Disease
PROC: 4A023N7 Measurement of Cardiac Sampling and Pressure, Left Heart, Percutaneous Approach (ICD-10-PCS; principal; 2021-06-28)
PROC: B2111ZZ Fluoroscopy of Multiple Coronary Arteries using Low Osmolar Contrast (ICD-10-PCS; 2021-06-28)
DX: I25.118 Atherosclerotic heart disease of native coronary artery with other forms of angina pectoris (principal); I11.9 Hypertensive heart disease without heart failure; I44.7 Left bundle-branch block, unspecified; E78.00 Pure hypercholesterolemia, unspecified; Z79.82 Long term (current) use of aspirin; Z79.899 Other long term (current) drug therapy; Z88.5 Allergy status to narcotic agent
CPT/HCPCS: 93458; J2001; J2250; J2405; J3010; Q9967

== ENCOUNTER 2022-01-09 10:01 | Outpatient (CLI) | payer MEDICARE | END 2022-01-09 10:02 | disposition home or self-care (01) | LOC: BICMAMMO 10:01 | PROVIDERS: ATTEND Internal Medicine | DX: Z12.31 Encounter for screening mammogram for malignant neoplasm of breast (principal); Z90.11 Acquired absence of right breast and nipple; Z80.3 Family history of malignant neoplasm of breast | CPT/HCPCS: 77063; 77067 ==

== ENCOUNTER 2022-09-04 10:31 | Outpatient (CLI) | payer MEDICARE | END 2022-09-04 10:32 | disposition home or self-care (01) | LOC: BICCT 10:31 | PROVIDERS: ATTEND Nurse Practitioner Family | DX: R06.02 Shortness of breath (principal); I27.20 Pulmonary hypertension, unspecified; I28.1 Aneurysm of pulmonary artery; J47.9 Bronchiectasis, uncomplicated | CPT/HCPCS: 71260; 82565 ==

== ENCOUNTER 2024-01-28 12:53 | Outpatient (CLI) | payer MEDICARE | END 2024-01-28 12:54 | disposition home or self-care (01) | LOC: BICMAMMO 12:53 | PROVIDERS: ATTEND General Practice | DX: Z12.31 Encounter for screening mammogram for malignant neoplasm of breast (principal); Z80.3 Family history of malignant neoplasm of breast; Z90.11 Acquired absence of right breast and nipple | CPT/HCPCS: 77063; 77067 ==

== ENCOUNTER 2024-06-05 09:37 | Inpatient (IN) | payer MEDICARE ==
[2024-06-05 11:21] LABS: #Basophils Less than 0.03 10x3/uL (0.0-0.2); #Eosinophils Less than 0.03 10x3/uL (0.0-0.7); %Basophils 0.1 % (0.0-1.0); %Neutrophils 88.5 % (42.0-75.0); Hematocrit 52.6 % (36.0-47.0); Hemoglobin 15.8 g/dL (12.0-16.0); Mean Corpuscular Hemoglobin 30.2 pg (27.0-31.0); Mean Corpuscular Volume 100.6 fL (78.0-98.0); Mean Platelet Volume 10.2 fL (7.4-10.4); Platelet Count 162 10x3/uL (130-400); RBC Distribution Width 15.9 % (11.5-14.5); Red Blood Cell (RBC) Count 5.23 mill/uL (4.20-5.40)
[2024-06-05 11:46] LABS: ALT (SGPT) 47 U/L (8-55); AST (SGOT) 35 U/L (5-34); Albumin 3.4 g/dL (3.4-4.8); Alkaline Phosphatase 74 U/L (40-110); Anion Gap 15 mmol/L (10-20); BUN (Urea Nitrogen) 15 mg/dL (9.8-20.1); Bilirubin, Total 0.5 mg/dL (0.2-1.2); Calc. Creatinine Clearance 0 mL/min (70-130); Calcium 9.1 mg/dL (7.8-10.44); Carbon Dioxide 37 mmol/L (23-31); Chloride 90 mmol/L (98-107); Estimated GFR 85; Globulin 3.4 g/dL (2.4-3.5); Glucose 106 mg/dL (83-110); Potassium 4.9 mmol/L (3.5-5.1); Protein, Total 6.8 g/dL (5.8-8.1); Sodium 137 mmol/L (136-145)
[2024-06-05 11:47] LABS: Bacteria/HPF None Seen HPF (None Seen); Bilirubin 1+ (Negative); Blood, Urine Negative (Negative); CAUTI Indications for Culture Alt mental st,lethar; Clarity Clear (Clear); Glucose, Urine (Dipstick) Normal (Negative); Ketone, Urine Negative (Negative); Leukocyte Negative Leu/uL (Negative); Nitrite Negative (Negative); Protein, Urine (Dipstick) 20 mg/dL (Neg-Trace); RBC/HPF 0-3 HPF (0-3); Specific Gravity, Urine 1.014 (1.002-1.036); Squamous Epithelial None Seen HPF (0-3); Urobilinogen Normal mg/dL (Less than 2); WBC/HPF 0-3 HPF (0-3)
[2024-06-05 11:48] LABS: Urine Culture Reflex No No
[2024-06-05 11:55] LABS: Troponin I Less than 0.010 ng/mL (< 0.028)
[2024-06-05] MEDS ORDERED: Furosemide 40 MG (4 mL) VIAL ONE (13:02)
[2024-06-05] MEDS ORDERED: Iopamidol-370 76% 500 ML MDV (1 ML CHARGE) ONE (14:00)
[2024-06-05] MEDS ORDERED: Acetaminophen 325 MG TAB PO PRN (15:59)
[2024-06-05] MEDS: cefTRIAXone\\ROCEPHIN 2 GM in Sodium Chloride 0.9% 100 ML IVPB SCH (17:05)
[2024-06-05] MEDS: Furosemide 40 MG (4 mL) VIAL SLOW IVP SCH (18:01)
[2024-06-05 18:04] LABS: Troponin I 0.011 ng/mL (< 0.028)
[2024-06-05] MEDS: Famotidine 20 MG TAB PO SCH (21:16)
[2024-06-05] MEDS: Pantoprazole DR 40 MG TAB PO SCH (21:20)
[2024-06-06 04:34] LABS: #Basophils Less than 0.03 10x3/uL (0.0-0.2); #Eosinophils Less than 0.03 10x3/uL (0.0-0.7); %Basophils 0.1 % (0.0-1.0); %Lymphocytes 6.4 % (21.0-51.0); %Monocytes 6.5 % (0.0-10.0); %Neutrophils 86.6 % (42.0-75.0); Hematocrit 50.6 % (36.0-47.0); Hemoglobin 15.4 g/dL (12.0-16.0); Mean Corpuscular HGB CONC 30.4 g/dL (32.0-36.0); Mean Corpuscular Hemoglobin 29.8 pg (27.0-31.0); Mean Corpuscular Volume 98.1 fL (78.0-98.0); Mean Platelet Volume 9.8 fL (7.4-10.4); Platelet Count 179 10x3/uL (130-400); RBC Distribution Width 15.2 % (11.5-14.5); Red Blood Cell (RBC) Count 5.16 mill/uL (4.20-5.40)
[2024-06-06 04:46] LABS: Anion Gap 19 mmol/L (10-20); BUN (Urea Nitrogen) 16 mg/dL (9.8-20.1); Calc. Creatinine Clearance 48 mL/min (70-130); Calcium 9.2 mg/dL (7.8-10.44); Carbon Dioxide 41 mmol/L (23-31); Chloride 83 mmol/L (98-107); Estimated GFR 86; Glucose 99 mg/dL (83-110); Potassium 3.9 mmol/L (3.5-5.1); Sodium 139 mmol/L (136-145)
[2024-06-06] MEDS: Furosemide 40 MG (4 mL) VIAL SLOW IVP SCH (06:49)
[2024-06-06] MEDS: Enoxaparin 40 MG (0.4 mL) SYRINGE SC SCH (08:52)
[2024-06-06] MEDS ORDERED: Evolocumab [Repatha Sureclick] 140 MG/ML Pen.Injctr SC SCH (14:45)
[2024-06-06 17:04] LABS: Actual Bicarbonate (HCO3a) 52.3 mEq/L (22-28); Base Excess (BEa) 17.8 mEq/L (-2.0 to +3.0); Calcium, Ionized (arterial) 1.13 mmol/L (1.12-1.30); Carboxyhemoglobin (COHb) 1.8 gm% (0.0-3.0); Hematocrit-ABG 48 % (36.0-47.0); Hemoglobin (Hb) 16.2 g/dL (12.0-16.0); O2 Tension (PaO2), arterial 163.2 mmHg (> 60.0); pH, Arterial 7.255 (7.35-7.45)
[2024-06-06] MEDS: Azithromycin 500 MG in Sodium Chloride 0.9% 250 ML 250 ML IVPB SCH (17:04)
[2024-06-06 17:08] LABS: ALV-art Gradient -99.925 mmHg (0-20); CO2 Tension 120.5 mmHg (35.0-45.0); Puncture Site Left Radial artery
[2024-06-06 19:20] LABS: Actual Bicarbonate (HCO3a) 42.1 mEq/L (22-28); Base Excess (BEa) 17.4 mEq/L (-2.0 to +3.0); CO2 Tension 47.7 mmHg (35.0-45.0); Calcium, Ionized (arterial) 1.03 mmol/L (1.12-1.30); Carboxyhemoglobin (COHb) 1.6 gm% (0.0-3.0); Hematocrit-ABG 47 % (36.0-47.0); Hemoglobin (Hb) 15.9 g/dL (12.0-16.0); O2 Tension (PaO2), arterial 97.3 mmHg (> 60.0); Potassium - ABG Lab 3.68 mmol/L (3.70-5.30); pH, Arterial 7.564 (7.35-7.45)
[2024-06-06 19:38] LABS: ALV-art Gradient 56.975 mmHg (0-20); Puncture Site Left Radial artery
[2024-06-06] MEDS: Multivitamin w/Zinc Stress 1 TAB PO SCH (21:00)
[2024-06-06] MEDS: Mirtazapine 15 MG TAB PO SCH (21:00)
[2024-06-06] MEDS: Pantoprazole DR 40 MG TAB PO SCH (21:00)
[2024-06-07 04:26] LABS: #Basophils Less than 0.03 10x3/uL (0.0-0.2); #Eosinophils Less than 0.03 10x3/uL (0.0-0.7); %Basophils 0.2 % (0.0-1.0); %Eosinophils 0.1 % (0.0-10.0); %Monocytes 9.2 % (0.0-10.0); %Neutrophils 75.3 % (42.0-75.0); Hematocrit 49.7 % (36.0-47.0); Hemoglobin 15.7 g/dL (12.0-16.0); Mean Corpuscular HGB CONC 31.6 g/dL (32.0-36.0); Mean Corpuscular Hemoglobin 30.3 pg (27.0-31.0); Mean Corpuscular Volume 95.9 fL (78.0-98.0); Mean Platelet Volume 10.1 fL (7.4-10.4); Platelet Count 190 10x3/uL (130-400); RBC Distribution Width 15.1 % (11.5-14.5); Red Blood Cell (RBC) Count 5.18 mill/uL (4.20-5.40)
[2024-06-07 04:47] LABS: Anion Gap 20 mmol/L (10-20); BUN (Urea Nitrogen) 24 mg/dL (9.8-20.1); CK (CPK) 70 U/L (29-168); Calc. Creatinine Clearance 44 mL/min (70-130); Calcium 9.2 mg/dL (7.8-10.44); Carbon Dioxide 39 mmol/L (23-31); Chloride 83 mmol/L (98-107); Estimated GFR 86; Glucose 85 mg/dL (83-110); Potassium 3.7 mmol/L (3.5-5.1); Sodium 138 mmol/L (136-145)
[2024-06-07] MEDS: Metoprolol Tartrate 5 MG (5 mL) VIAL ONE (09:35)
[2024-06-07] MEDS ORDERED: dilTIAZem 125 MG in Sodium Chloride 0.9% 100 ML IVPB SCH (09:45)
[2024-06-07] MEDS: dilTIAZem 25 MG/5 ML VIAL ONE (09:50)
[2024-06-07] MEDS: Cholecalciferol 1,000 UNITS (25 MCG) TAB PO SCH (10:00)
[2024-06-07] MEDS: Diltiazem HCl/D5W 125 MG in Premix 1 BAG IVPB SCH (10:08)
[2024-06-07] MEDS: Aspirin Chewable 81 MG TAB PO SCH (10:15)
[2024-06-07] MEDS: Enoxaparin 30 MG (0.3 mL) SYRINGE SC SCH (10:16)
[2024-06-07 10:34] LABS: Magnesium 1.8 mg/dL (1.6-2.6)
[2024-06-07] MEDS: Sodium Chloride 0.9% 250 ML 250 ML IVPB SCH (11:16)
[2024-06-07] MEDS: Sodium Chloride 0.9% 1,000 ML IV SCH (11:17)
[2024-06-07] MEDS: Magnesium 2 GM/50 ML(in water) 2 GM in Premix 1 BAG IVPB SCH (13:08)
[2024-06-07] MEDS: Potassium Chloride 20 MEQ in Premix 1 BAG IVPB SCH (13:17)
[2024-06-08 04:05] LABS: #Basophils Less than 0.03 10x3/uL (0.0-0.2); %Basophils 0.1 % (0.0-1.0); %Eosinophils 0.7 % (0.0-10.0); %Lymphocytes 20.1 % (21.0-51.0); %Monocytes 12.5 % (0.0-10.0); %Neutrophils 66.3 % (42.0-75.0); Hematocrit 51.4 % (36.0-47.0); Hemoglobin 15.5 g/dL (12.0-16.0); Mean Corpuscular HGB CONC 30.2 g/dL (32.0-36.0); Mean Corpuscular Volume 99.6 fL (78.0-98.0); Platelet Count 197 10x3/uL (130-400); RBC Distribution Width 15.4 % (11.5-14.5); Red Blood Cell (RBC) Count 5.16 mill/uL (4.20-5.40)
[2024-06-08 04:18] LABS: Anion Gap 13 mmol/L (10-20); BUN (Urea Nitrogen) 28 mg/dL (9.8-20.1); Calc. Creatinine Clearance 40 mL/min (70-130); Calcium 8.7 mg/dL (7.8-10.44); Carbon Dioxide 43 mmol/L (23-31); Chloride 86 mmol/L (98-107); Estimated GFR 84; Glucose 132 mg/dL (83-110); Potassium 3.8 mmol/L (3.5-5.1); Sodium 138 mmol/L (136-145)
[2024-06-08] MEDS ORDERED: Diltiazem HCl/D5W 125 MG in Premix 1 BAG IVPB SCH (12:26)
[2024-06-08] MEDS: dilTIAZem 30 MG TAB PO SCH (15:17)
[2024-06-08] MEDS: Carvedilol 3.125 MG TAB PO SCH (21:16)
[2024-06-09 04:43] LABS: #Basophils Less than 0.03 10x3/uL (0.0-0.2); %Basophils 0.1 % (0.0-1.0); %Eosinophils 0.6 % (0.0-10.0); %Lymphocytes 8.4 % (21.0-51.0); %Monocytes 10.9 % (0.0-10.0); %Neutrophils 79.8 % (42.0-75.0); Hematocrit 49.7 % (36.0-47.0); Hemoglobin 14.8 g/dL (12.0-16.0); Mean Corpuscular HGB CONC 29.8 g/dL (32.0-36.0); Mean Corpuscular Volume 100.6 fL (78.0-98.0); Mean Platelet Volume 9.8 fL (7.4-10.4); Platelet Count 156 10x3/uL (130-400); RBC Distribution Width 15.1 % (11.5-14.5); Red Blood Cell (RBC) Count 4.94 mill/uL (4.20-5.40)
[2024-06-09 05:01] LABS: Anion Gap 12 mmol/L (10-20); BUN (Urea Nitrogen) 19 mg/dL (9.8-20.1); Calc. Creatinine Clearance 49 mL/min (70-130); Carbon Dioxide 44 mmol/L (23-31); Chloride 89 mmol/L (98-107); Estimated GFR 89; Glucose 146 mg/dL (83-110); Potassium 4.3 mmol/L (3.5-5.1); Sodium 141 mmol/L (136-145)
[2024-06-09] MEDS: Empagliflozin 10 MG TAB PO SCH ×2 (11:41)
[2024-06-09] MEDS: Amiodarone 200 MG TAB PO SCH (11:41)
[2024-06-10] MEDS ORDERED: GUAIFENESIN SF SOLN 200 MG/10 ML UDCUP PO PRN (00:01)
[2024-06-10] MEDS ORDERED: Ipratropium/Albuterol 3 ML NEB NEB PRN (00:01)
[2024-06-10] MEDS ORDERED: Benzonatate 100 MG CAP PO PRN (00:01)
[2024-06-10] MEDS: Furosemide 40 MG (4 mL) VIAL SLOW IVP SCH (03:09)
[2024-06-10 04:03] LABS: Actual Bicarbonate (HCO3a) 42.6 mEq/L (22-28); Calcium, Ionized (arterial) 1.11 mmol/L (1.12-1.30); Carboxyhemoglobin (COHb) 3.7 gm% (0.0-3.0); Hematocrit-ABG 48 % (36.0-47.0); Hemoglobin (Hb) 16.3 g/dL (12.0-16.0); O2 Tension (PaO2), arterial 175.1 mmHg (> 60.0); Potassium - ABG Lab 5.08 mmol/L (3.70-5.30); pH, Arterial 7.327 (7.35-7.45)
[2024-06-10 04:04] LABS: CO2 Tension 83.2 mmHg (35.0-45.0); Puncture Site Right Radial artery
[2024-06-10 04:16] LABS: #Basophils Less than 0.03 10x3/uL (0.0-0.2); %Basophils 0.1 % (0.0-1.0); %Eosinophils 0.8 % (0.0-10.0); %Lymphocytes 15.2 % (21.0-51.0); %Monocytes 7.2 % (0.0-10.0); %Neutrophils 76.3 % (42.0-75.0); Hematocrit 55.7 % (36.0-47.0); Hemoglobin 15.9 g/dL (12.0-16.0); Mean Corpuscular HGB CONC 28.5 g/dL (32.0-36.0); Mean Corpuscular Hemoglobin 29.9 pg (27.0-31.0); Mean Corpuscular Volume 104.9 fL (78.0-98.0); Mean Platelet Volume 9.9 fL (7.4-10.4); Platelet Count 179 10x3/uL (130-400); RBC Distribution Width 15.2 % (11.5-14.5); Red Blood Cell (RBC) Count 5.31 mill/uL (4.20-5.40)
[2024-06-10 04:31] LABS: Bacteria/HPF None Seen HPF (None Seen); Bilirubin Negative (Negative); Blood, Urine Negative (Negative); CAUTI Indications for Culture Alt mental st,lethar; Clarity Clear (Clear); Glucose, Urine (Dipstick) Greater than 1000 mg/dL (Negative); Ketone, Urine Negative (Negative); Leukocyte Negative Leu/uL (Negative); Nitrite Negative (Negative); Protein, Urine (Dipstick) Negative (Neg-Trace); RBC/HPF None Seen HPF (0-3); Specific Gravity, Urine 1.017 (1.002-1.036); Squamous Epithelial 0-3 HPF (0-3); Urobilinogen Normal mg/dL (Less than 2); WBC/HPF 0-3 HPF (0-3)
[2024-06-10 04:33] LABS: Anion Gap 14 mmol/L (10-20); BUN (Urea Nitrogen) 16 mg/dL (9.8-20.1); Calc. Creatinine Clearance 38 mL/min (70-130); Carbon Dioxide 43 mmol/L (23-31); Chloride 90 mmol/L (98-107); Estimated GFR 85; Glucose 154 mg/dL (83-110); Magnesium 2.3 mg/dL (1.6-2.6); Sodium 142 mmol/L (136-145)
[2024-06-10 04:34] LABS: Troponin I 0.167 ng/mL (< 0.028)
[2024-06-10 04:37] LABS: Amphetamine Not Detected (NotDetected); Barbiturates Screen Not Detected (NotDetected); Benzodiazepine Screen Not Detected (NotDetected); Cocaine Metabolite Screen Not Detected (NotDetected); Methadone Not Detected (NotDetected); Methamphetamine Not Detected (NotDetected); Opiate Screen Not Detected (NotDetected); Oxycodone Screen Not Detected (NotDetected); Phencyclidine (PCP) Not Detected (NotDetected); THC/Cannabinoid Screen Not Detected (NotDetected); Tricyclic Screen Not Detected (NotDetected)
[2024-06-10 04:40] LABS: Urine Culture Reflex No No
[2024-06-10 05:21] VITALS: BMI 18.9
[2024-06-10] MEDS: hydrALAZINE 20 MG/ML VIAL SLOW IVP SCH (06:39)
[2024-06-10] MEDS: acetaZOLAMIDE Sodium 500 mg Vial IVP SCH ×2 (10:38→16:17)
[2024-06-10] MEDS: Sterile Water 10 ML ONE ×2 (10:48→16:17)
[2024-06-10] MEDS: Amiodarone 200 MG TAB PO SCH (20:46)
[2024-06-11 04:49] LABS: #Basophils Less than 0.03 10x3/uL (0.0-0.2); %Basophils 0.2 % (0.0-1.0); %Eosinophils 0.8 % (0.0-10.0); %Monocytes 7.2 % (0.0-10.0); %Neutrophils 79.3 % (42.0-75.0); Hematocrit 51.7 % (36.0-47.0); Mean Corpuscular Hemoglobin 29.8 pg (27.0-31.0); Mean Corpuscular Volume 102.6 fL (78.0-98.0); Mean Platelet Volume 10.1 fL (7.4-10.4); Platelet Count 173 10x3/uL (130-400); RBC Distribution Width 14.7 % (11.5-14.5); Red Blood Cell (RBC) Count 5.04 mill/uL (4.20-5.40)
[2024-06-11 05:08] LABS: Anion Gap 15 mmol/L (10-20); BUN (Urea Nitrogen) 17 mg/dL (9.8-20.1); Calc. Creatinine Clearance 44 mL/min (70-130); Calcium 9.7 mg/dL (7.8-10.44); Carbon Dioxide 36 mmol/L (23-31); Chloride 93 mmol/L (98-107); Estimated GFR 86; Glucose 107 mg/dL (83-110); Potassium 4.4 mmol/L (3.5-5.1); Sodium 140 mmol/L (136-145)
[2024-06-11] MEDS ORDERED: Metoprolol Tartrate 5 MG (5 mL) VIAL IVP PRN (09:42)
[2024-06-11] MEDS: acetaZOLAMIDE Sodium 500 mg Vial IVP SCH (09:44)
[2024-06-11] MEDS: Sterile Water 10 ML VIAL IVP SCH (09:55)
[2024-06-11] MEDS: Pantoprazole 40 MG VIAL IVP SCH ×2 (09:55→20:25)
[2024-06-12 08:34] LABS: #Basophils 0.03 10x3/uL (0.0-0.2); %Basophils 0.3 % (0.0-1.0); %Eosinophils 0.8 % (0.0-10.0); %Lymphocytes 7.6 % (21.0-51.0); %Monocytes 7.4 % (0.0-10.0); %Neutrophils 83.8 % (42.0-75.0); Hemoglobin 15.7 g/dL (12.0-16.0); Mean Corpuscular HGB CONC 30.2 g/dL (32.0-36.0); Mean Corpuscular Hemoglobin 30.5 pg (27.0-31.0); Mean Platelet Volume 9.8 fL (7.4-10.4); Platelet Count 188 10x3/uL (130-400); RBC Distribution Width 14.8 % (11.5-14.5); Red Blood Cell (RBC) Count 5.15 mill/uL (4.20-5.40)
[2024-06-12 08:54] LABS: Anion Gap 12 mmol/L (10-20); BUN (Urea Nitrogen) 24 mg/dL (9.8-20.1); Calc. Creatinine Clearance 43 mL/min (70-130); Calcium 10.3 mg/dL (7.8-10.44); Carbon Dioxide 36 mmol/L (23-31); Chloride 95 mmol/L (98-107); Estimated GFR 85; Glucose 161 mg/dL (83-110); Sodium 139 mmol/L (136-145)
[2024-06-13 02:19] LABS: #Basophils Less than 0.03 10x3/uL (0.0-0.2); %Basophils 0.2 % (0.0-1.0); %Eosinophils 1.2 % (0.0-10.0); %Lymphocytes 17.4 % (21.0-51.0); %Monocytes 9.8 % (0.0-10.0); %Neutrophils 71.2 % (42.0-75.0); Hematocrit 50.1 % (36.0-47.0); Hemoglobin 15.3 g/dL (12.0-16.0); Mean Corpuscular HGB CONC 30.5 g/dL (32.0-36.0); Mean Corpuscular Hemoglobin 30.4 pg (27.0-31.0); Mean Corpuscular Volume 99.4 fL (78.0-98.0); Mean Platelet Volume 10.2 fL (7.4-10.4); Platelet Count 163 10x3/uL (130-400); RBC Distribution Width 14.6 % (11.5-14.5); Red Blood Cell (RBC) Count 5.04 mill/uL (4.20-5.40)
[2024-06-13 02:36] LABS: Anion Gap 15 mmol/L (10-20); BUN (Urea Nitrogen) 21 mg/dL (9.8-20.1); Calc. Creatinine Clearance 47 mL/min (70-130); Calcium 9.5 mg/dL (7.8-10.44); Carbon Dioxide 26 mmol/L (23-31); Chloride 100 mmol/L (98-107); Estimated GFR 88; Glucose 107 mg/dL (83-110); Potassium 4.3 mmol/L (3.5-5.1); Sodium 137 mmol/L (136-145)
[2024-06-13] MEDS: AcetaZOLAMIDE ER 500 MG CAP PO SCH (09:06)
[2024-06-13 13:44] VITALS: BMI 19.1
[2024-06-14 05:01] LABS: #Basophils Less than 0.03 10x3/uL (0.0-0.2); %Basophils 0.3 % (0.0-1.0); %Eosinophils 1.5 % (0.0-10.0); %Lymphocytes 22.4 % (21.0-51.0); %Monocytes 8.7 % (0.0-10.0); %Neutrophils 66.9 % (42.0-75.0); Hematocrit 46.5 % (36.0-47.0); Hemoglobin 14.7 g/dL (12.0-16.0); Mean Corpuscular HGB CONC 31.6 g/dL (32.0-36.0); Mean Corpuscular Hemoglobin 30.6 pg (27.0-31.0); Mean Corpuscular Volume 96.7 fL (78.0-98.0); Mean Platelet Volume 10.4 fL (7.4-10.4); Platelet Count 205 10x3/uL (130-400); RBC Distribution Width 14.2 % (11.5-14.5); Red Blood Cell (RBC) Count 4.81 mill/uL (4.20-5.40)
[2024-06-14 05:45] LABS: Anion Gap 14 mmol/L (10-20); BUN (Urea Nitrogen) 20 mg/dL (9.8-20.1); Calc. Creatinine Clearance 52 mL/min (70-130); Calcium 9.4 mg/dL (7.8-10.44); Carbon Dioxide 28 mmol/L (23-31); Chloride 101 mmol/L (98-107); Estimated GFR 87; Glucose 102 mg/dL (83-110); Potassium 4.1 mmol/L (3.5-5.1); Sodium 139 mmol/L (136-145)
[2024-06-14] MEDS: Loratadine 10 MG TAB PO SCH (10:58)
[2024-06-14] MEDS: Fluticasone Propionate Nasal Spray 16 gm Bottle NASAL SCH (11:00)
[2024-06-15 04:39] LABS: #Basophils 0.03 10x3/uL (0.0-0.2); %Basophils 0.5 % (0.0-1.0); %Monocytes 10.3 % (0.0-10.0); Hematocrit 46.5 % (36.0-47.0); Hemoglobin 14.2 g/dL (12.0-16.0); Mean Corpuscular HGB CONC 30.5 g/dL (32.0-36.0); Mean Corpuscular Hemoglobin 30.3 pg (27.0-31.0); Mean Corpuscular Volume 99.4 fL (78.0-98.0); Mean Platelet Volume 10.3 fL (7.4-10.4); Platelet Count 207 10x3/uL (130-400); RBC Distribution Width 14.4 % (11.5-14.5); Red Blood Cell (RBC) Count 4.68 mill/uL (4.20-5.40)
[2024-06-15 04:49] LABS: Anion Gap 11 mmol/L (10-20); BUN (Urea Nitrogen) 16 mg/dL (9.8-20.1); Calc. Creatinine Clearance 43 mL/min (70-130); Calcium 9.5 mg/dL (7.8-10.44); Carbon Dioxide 32 mmol/L (23-31); Chloride 101 mmol/L (98-107); Estimated GFR 84; Glucose 97 mg/dL (83-110); Potassium 4.5 mmol/L (3.5-5.1); Sodium 139 mmol/L (136-145)
[2024-06-15] MEDS: Enoxaparin 40 MG (0.4 mL) SYRINGE SC SCH (08:47)
[2024-06-16 05:28] LABS: #Basophils 0.03 10x3/uL (0.0-0.2); %Basophils 0.5 % (0.0-1.0); %Eosinophils 1.8 % (0.0-10.0); %Lymphocytes 26.9 % (21.0-51.0); %Monocytes 9.2 % (0.0-10.0); %Neutrophils 61.4 % (42.0-75.0); Hematocrit 46.2 % (36.0-47.0); Hemoglobin 14.1 g/dL (12.0-16.0); Mean Corpuscular HGB CONC 30.5 g/dL (32.0-36.0); Mean Corpuscular Hemoglobin 29.7 pg (27.0-31.0); Mean Corpuscular Volume 97.5 fL (78.0-98.0); Mean Platelet Volume 10.6 fL (7.4-10.4); Platelet Count 215 10x3/uL (130-400); RBC Distribution Width 14.4 % (11.5-14.5); Red Blood Cell (RBC) Count 4.74 mill/uL (4.20-5.40)
[2024-06-16 05:53] LABS: Anion Gap 12 mmol/L (10-20); Calc. Creatinine Clearance 45 mL/min (70-130); Calcium 9.3 mg/dL (7.8-10.44); Carbon Dioxide 27 mmol/L (23-31); Chloride 105 mmol/L (98-107); Estimated GFR 85; Glucose 101 mg/dL (83-110); Sodium 140 mmol/L (136-145)
[2024-06-16 05:57] LABS: BUN (Urea Nitrogen) 15 mg/dL (9.8-20.1)
[2024-06-16 12:32] VITALS: TEMP 98.1
[2024-06-16 16:23] VITALS: BP 126/57
[2024-06-17] MEDS ORDERED: Amiodarone 200 MG TAB PO SCH (09:00)
== END 2024-06-16 16:01 | disposition home health service (06) | DRG 291 ==
LOC: ERS 09:37 → ERHOLD 14:14 → 2NO 15:57 → OBSVTOIN 16:14 → CCU 06-06 18:36 → 2NO 06-07 17:56 → IMCU/EMU 06-10 04:54 → 2NO 06-13 17:11
PROVIDERS: ADMIT Hospitalist; ATTEND Family Medicine
PROC: 4A133R1 Monitoring of Arterial Saturation, Peripheral, Percutaneous Approach (ICD-10-PCS; principal; 2024-06-06)
DX: I11.0 Hypertensive heart disease with heart failure (principal); G93.41 Metabolic encephalopathy; J96.02 Acute respiratory failure with hypercapnia; I50.33 Acute on chronic diastolic (congestive) heart failure; J96.01 Acute respiratory failure with hypoxia; N39.0 Urinary tract infection, site not specified; E87.3 Alkalosis; K21.9 Gastro-esophageal reflux disease without esophagitis; E78.5 Hyperlipidemia, unspecified; I25.10 Atherosclerotic heart disease of native coronary artery without angina pectoris; I48.0 Paroxysmal atrial fibrillation; K20.80 Other esophagitis without bleeding; I44.7 Left bundle-branch block, unspecified; Z85.3 Personal history of malignant neoplasm of breast; Z92.21 Personal history of antineoplastic chemotherapy; Z88.5 Allergy status to narcotic agent; Z90.710 Acquired absence of both cervix and uterus; Z79.899 Other long term (current) drug therapy; Z79.82 Long term (current) use of aspirin; Z79.4 Long term (current) use of insulin
CPT/HCPCS: 36415; 36416; 36600; 51701; 70450; 71045; 71275; 74230; 80048; 80053; 80306; 81001; 82550; 82805; 83605; 83735; 83880; 84443; 84484; 85025; 87086; 93005; 93010; 93306; 94660; 94760; 96374; G0378; J0456; J0696; J1120; J1650; J1940; J2470; J3475; J3480; J7050; Q9967